=== PATIENT | female | born 1980 | race Caucasian/White ===

== ENCOUNTER 2018-06-08 19:19 | Emergency (ER) | payer OTHER ==
--- NOTE | 2018-06-08 19:31 | EDPHY ---
H & P Stated Complaint: Headache, "neck pain, back pain", recent GI "bug" - Personal History LMP (Females 10-55): Irregular Current Tetanus Diphtheria and Acellular Pertussis (TDAP): Yes Tetanus Vaccine Date: 2015 - Medical/Surgical History Hx Asthma: No Hx Chronic Respiratory Disease: No Hx Diabetes: No Hx Cardiac Disease: No Hx Renal Disease: No Hx Cirrhosis: No Hx Alcoholism: No Hx HIV/AIDS: No Hx Splenectomy or Spleen Trauma: No Other PMH: Depression - Social History Smoking Status: Never smoked Time Seen by Provider: 06/08/18 19:30 Constitutional: Initial Vital Signs Temperature (C) 36.7 C 06/08/18 19:23 Heart Rate 95 06/08/18 19:23 Respiratory Rate 20 06/08/18 19:23 Blood Pressure 146/101 H 06/08/18 19:23 O2 Sat (%) 97 06/08/18 19:23 O2 Delivery Mode Room Air Allergies/Adverse Reactions: No Known Allergies Allergy (Unverified 06/08/18 19:22) Home Medications: Medication Instructions Recorded Effexor Xr 06/08/18 Medical Decision Making ED Course/Re-evaluation: CHIEF COMPLAINT: Headache HISTORY OF PRESENT ILLNESS: The patient is a 37 y/o female arriving with her parents complaining of a severe headache with associated neck and back pain onset this morning. She was ill with a gastrointestinal illness on May 31 , 1 week ago, and had nausea and vomiting for 2-3 days. These symptoms slowly resolved and over the last 2 days she has felt well enough to get out of the house until this morning. At 04:00 today, 15.5 hours ago, she awoke with a severe headache that is worse with any movement including bending her head to her chest and associated with photophobia. She additionally has lower back pain spreading around both hips. She denies urinary symptoms, vaginal symptoms, unusual discharge, fever, cough. She denies significant prior history of headaches, though her mother mentioned she sometimes got headaches while on her period. Her last menstrual period was last week. REVIEW OF SYSTEMS: A comprehensive 10 system review of systems is otherwise negative aside from elements mentioned in the history of present illness and medical decision making. PHYSICAL EXAM: HR, BP, O2 Sat, RR. Temp noted General Appearance: Alert, well hydrated, appropriate, and non-toxic appearing. Head: Atraumatic without scalp tenderness or obvious injury Eyes: Pupils equal, round, reactive to light and accommodation, EOMI, no trauma , no injection. Ears: Clear bilaterally, no perforation, normal landmarks Nose: Atraumatic, no rhinorrhea, clear. Throat: There is no erythema or exudates, no lesions, normal tonsils, mucus membranes moist. Neck: Positive meningeal signs. Pain with any ROM of head. Respiratory: No retractions, no distress, no wheezes, and no accessory muscle use. Lungs are clear to auscultation bilaterally. Cardiovascular: Regular rate and rhythm, no murmurs, rubs, or gallops. Good capillary refill all extremities. Gastrointestinal: Abdomen is soft, nontender, non-distended, no masses, no rebound, no guarding, no peritoneal signs. Musculoskeletal: Normal active ROM of all extremities, atraumatic. Neurological: Alert, appropriate, and interactive. The patient has non-focal cranial nerves, motor, sensory, and cerebellar exam. Skin: No rashes, good turgor, no nodules on palpation. Past medical history: Denies Past surgical history: Denies Family history: Noncontributory Social history: Cigarette smoker. Parents at bedside. Lives in [place]. Single. DIAGNOSTICS/PROCEDURES/CRITICAL CARE TIME: Procedure: Lumbar puncture. Indication: headache After verbal informed consent from patient explaining the risks including infection, bleeding, and neurologic damage, a lumbar puncture was performed after the patient was prepped and draped in the usual fashion. The back was anesthetized with 1% lidocaine. Approximately 4 cc of clear fluid was obtained. Opening pressure was not obtained. There were no complications. The procedure was performed by myself, Dr. Moore. DIFFERENTIAL DIAGNOSIS: The differential diagnosis for the patient's head injury included but was not limited to concussion, skull fracture, intra- parenchymal contusion, subarachnoid, subdural and epidural hematoma. MEDICAL DECISION MAKING: This is a normally healthy 37 y/o female who presents with a 16-hour history of a severe headache upon waking this morning in the setting of a recent GI illness. Her abdomen is benign. She has positive meningeal signs on exam. She is afebrile and does not have signs of systemic illness. She does not meet sepsis criteria. Discussed recommendation to perform lumbar puncture to rule out meningitis, which she agrees to. IV established. Additionally plan for symptomatic treatment with 10mg IV Reglan, 30mg IV Toradol, 125mg IV Solumedrol , 100mcg IV Fentanyl. Lab was unable to report result for CSF in tube 1. Tube 4 show RBCs with corresponding WBCs that likely represents a traumatic tap rather than infection. Remaining CSF results are still pending. 2100: Patient care signed out to Dr. Luu at shift change pending CSF results. (Edin Moore) 9:50 p.m. I discussed the CSF results with the patient and family. She states that she is feeling much better. Her headache is resolved. She is able to touch her chin to her chest. She states that she still has some mild low back pain. Will order a urinalysis. Patient is afebrile. She has taken Toradol recently as well as Tylenol at home. Discussed the case with Dr. Edin Lozano from Infectious Disease and discussed the CSF results specifically. He says that it sounds like a viral illness and requested recent enteroviral CSF. He thinks that she is likely safe for discharge based on the numbers. The patient does look well and has stable vital signs. They are very happy with this and eager to go home. Strict return precautions given. (Evgeny Luu) - Data Points Laboratory Results: Laboratory Results 06/08/18 19:50 06/08/18 19:50 06/08/18 06/08/18 06/08/18 21:58 21:50 20:00 WBC RBC Hgb Hct MCV MCH MCHC RDW Plt Count MPV Neut % (Auto) Lymph % (Auto) Becker % (Auto) Eos % (Auto) Baso % (Auto) Nucleat RBC Rel Count Absolute Neuts (auto) Absolute Lymphs (auto) Absolute Monos (auto) Absolute Eos (auto) Absolute Basos (auto) Absolute Nucleated RBC Immature Gran % Immature Gran # Sodium Potassium Chloride Carbon Dioxide Anion Gap BUN Creatinine Estimated GFR Glucose Calcium Urine Color YELLOW Urine Appearance HAZY Urine pH 5.0 (5.0-7.5) Ur Specific [place] 1.013 (1.002-1.030) Urine Protein NEGATIVE (NEGATIVE) Urine Ketones 1+ H (NEGATIVE) Urine Blood 1+ H (NEGATIVE) Urine Nitrate NEGATIVE (NEGATIVE) Urine Bilirubin NEGATIVE (NEGATIVE) Urine Urobilinogen NEGATIVE EU EU (0.2-1.0) Ur Leukocyte Esterase NEGATIVE (NEGATIVE) Urine RBC 3-5 /hpf H /hpf (0-3) Urine WBC 1-3 /hpf /hpf (0-3) Ur Epithelial Cells 1+ /lpf /lpf (NONE-1+) Urine Bacteria TRACE /hpf H /hpf (NONE SEEN) Urine Mucus TRACE /lpf /lpf (NONE-1+) Urine Glucose NEGATIVE (NEGATIVE) Fl Pathologist Review Pending CSF Tube Number 4 CSF Appearance SL. HAZY H (CLEAR) CSF Color COLORLESS (COLORLESS) CSF Supernatant COLORLESS (COLORLESS) CSF WBC 368 /mm3 H /mm3 (0-5) CSF RBC 214 /mm3 H /mm3 (0-0) CSF Neutrophils % 12 % H % (0-6) CSF Lymphocytes % 85 % % (0-100) CSF Monos/Macrophage % 3 % % (0-45) CSF Glucose 46 mg/dL L mg/dL (50-75) CSF Total Protein 195 mg/dL H mg/dL (12-60) Enterovirus Source Cancelled Enterovirus RNA (PCR) Cancelled Miscellaneous Test Pending 06/08/18 06/08/18 19:50 19:50 WBC 13.68 10^3/uL H 10^3/uL (3.80-9.50) RBC 4.57 10^6/uL 10^6/uL (4.18-5.33) Hgb 14.2 g/dL g/dL (12.6-16.3) Hct 41.7 % % (38.0-47.0) MCV 91.2 fL fL (81.5-99.8) MCH 31.1 pg pg (27.9-34.1) MCHC 34.1 g/dL g/dL (32.4-36.7) RDW 12.3 % % (11.5-15.2) Plt Count 279 10^3/uL 10^3/uL (150-400) MPV 11.0 fL fL (8.7-11.7) Neut % (Auto) 73.8 % % (39.3-74.2) Lymph % (Auto) 16.4 % % (15.0-45.0) Becker % (Auto) 7.1 % % (4.5-13.0) Eos % (Auto) 2.0 % % (0.6-7.6) Baso % (Auto) 0.4 % % (0.3-1.7) Nucleat RBC Rel Count 0.0 % % (0.0-0.2) Absolute Neuts (auto) 10.11 10^3/uL H 10^3/uL (1.70-6.50) Absolute Lymphs (auto) 2.24 10^3/uL 10^3/uL (1.00-3.00) Absolute Monos (auto) 0.97 10^3/uL H 10^3/uL (0.30-0.80) Absolute Eos (auto) 0.27 10^3/uL 10^3/uL (0.03-0.40) Absolute Basos (auto) 0.05 10^3/uL 10^3/uL (0.02-0.10) Absolute Nucleated RBC 0.00 10^3/uL 10^3/uL (0-0.01) Immature Gran % 0.3 % % (0.0-1.1) Immature Gran # 0.04 10^3/uL 10^3/uL (0.00-0.10) Sodium 138 mEq/L mEq/L (135-145) Potassium 3.9 mEq/L mEq/L (3.5-5.2) Chloride 106 mEq/L mEq/L (97-110) Carbon Dioxide 22 mEq/l mEq/l (22-31) Anion Gap 10 mEq/L mEq/L (6-14) BUN 12 mg/dL mg/dL (7-23) Creatinine 0.8 mg/dL mg/dL (0.6-1.0) Estimated GFR > 60 Glucose 92 mg/dL mg/dL (70-100) Calcium 9.5 mg/dL mg/dL (8.5-10.4) Urine Color Urine Appearance Urine pH Ur Specific Cr[place] Urine Protein Urine Ketones Urine Blood Urine Nitrate Urine Bilirubin Urine Urobilinogen Ur Leukocyte Esterase Urine RBC Urine WBC Ur Epithelial Cells Urine Bacteria Urine Mucus Urine Glucose Fl Pathologist Review CSF Tube Number CSF Appearance CSF Color CSF Supernatant CSF WBC CSF RBC CSF Neutrophils % CSF Lymphocytes % CSF Monos/Macrophage % CSF Glucose CSF Total Protein Enterovirus Source Enterovirus RNA (PCR) Miscellaneous Test Microbiology Results: MICROBIOLOGY 06/08/18 20:00 Cerebral Spinal Fluid Gram Stain - Final Medications Given: Discontinued Medications Diphenhydramine HCl (Benadryl Injection) 50 mg IVP EDNOW ONE Stop: 06/08/18 20:00 Last Admin: 06/08/18 20:06 Dose: 50 mg Fentanyl (Sublimaze) 100 mcg IVP EDNOW ONE Stop: 06/08/18 19:42 Last Admin: 06/08/18 20:05 Dose: 100 mcg Sodium Chloride (Ns) 1,000 mls @ 0 mls/hr IV ONCE ONE; Wide Open PRN Reason: Protocol Stop: 06/08/18 20:00 Last Admin: 06/08/18 20:06 Dose: 1,000 mls Ketorolac Tromethamine (Toradol) 30 mg IVP EDNOW ONE Stop: 06/08/18 19:41 Last Admin: 06/08/18 20:05 Dose: 30 mg Methylprednisolone Sodium Succinate (Solu-Medrol) 125 mg IVP EDNOW ONE Stop: 06/08/18 19:41 Last Admin: 06/08/18 20:05 Dose: 125 mg Metoclopramide HCl (Reglan Injection) 10 mg IVP EDNOW ONE Stop: 06/08/18 19:41 Last Admin: 06/08/18 20:05 Dose: 10 mg Promethazine HCl (Phenergan 25 Mg Prepack #4) 1 btl TAKEHOME EDNOW ONE Stop: 06/08/18 22:07 Last Admin: 06/08/18 22:17 Dose: 1 btl Departure - Departure Disposition: Home, Routine, Self-Care Clinical Impression: Muscle ache Headache Qualifiers: Headache type: unspecified Headache chronicity pattern: acute headache Intractability: not intractable Qualified Code(s): R51 - Headache Condition: Good Instructions: Promethazine (By mouth), Acute Headache (ED) Additional Instructions: 1. Use Excedrin Migraine as directed on the packaging as needed for headache over the next few days. 2. Take the Phenergan every 6 hr as needed for headache if the Excedrin is not working. 3. Increase fluid intake. 4. Follow up with neurologist in the next few days. 5. Return to the ED for any worsening of condition. Referrals: Gonzalo Mcguire DO [Medical Doctor] - As per Instructions Report Scribed for: Edin Moore Report Scribed by: Yumiko Alcazar Date of Report: 06/08/18 Time of Report: 19:40
[2018-06-08] MEDS ORDERED: methylPREDNISolone SOD SUCC 125 MG/2 ML VIAL IVP ONE (19:40)
[2018-06-08] MEDS ORDERED: KETOROLAC 30 MG/1 ML SDV IVP ONE (19:40)
[2018-06-08] MEDS ORDERED: METOCLOPRAMIDE 10 MG/2 ML VIAL IVP ONE (19:40)
[2018-06-08] MEDS ORDERED: fentaNYL 100 MCG/2 ML INJ IVP ONE (19:41)
[2018-06-08] MEDS ORDERED: NS 1,000 ML IV ONE (19:59)
[2018-06-08 20:23] LABS: PLATELET COUNT 279 10^3/uL (150-400)
[2018-06-08 22:01] VITALS: BP 128/80
[2018-06-08] MEDS ORDERED: PROMETHAZINE 25 MG PREPACK #4 BTL TAKEHOME ONE (22:06)
== END 2018-06-08 22:24 | disposition home or self-care (01) ==
PROC: 009U3ZX Drainage of Spinal Canal, Percutaneous Approach, Diagnostic (ICD-10-PCS; principal; 2018-06-08)
DX: R51 Headache (principal); M79.10 Myalgia, unspecified site
CPT/HCPCS: 96374; J1200; J1885; J2765; J2930; J3010